=== PATIENT | male | born 1980 | race Caucasian/White ===

== ENCOUNTER 2024-10-05 12:08 | Emergency (ER) | payer OTHER, SELFPAY ==
[2024-10-05 12:53] VITALS: BP 129/80; PULSE 104; RESP 20; TEMP 37.2; O2SAT 96; BMI 34.4
--- NOTE | 2024-10-05 13:18 | ED.GENADULT ---
HPI - General Adult General Chief complaint: Fall/Minor Trauma Stated complaint: Fell, pain in side and abdomen Time Seen by Provider: 10/05/24 13:03 Source: patient Mode of arrival: ambulatory Limitations: no limitations History of Present Illness HPI narrative: 44-year-old male presenting today with left-sided chest wall and abdominal pain after falling on the ice. Patient was walking around his car he, hit a patch of ice. His legs flew out from underneath him and he fell onto his left side. He did not hit his head or lose consciousness. He felt immediate chest wall point well as occurred. He then got up went back to work but noticed that he could not continue because of the amount of pain that was in. He fell approximately 3 hours ago. He complains of pain with deep inspiration. He does not feel dizzy or lightheaded. He denies head or neck pain. Related Data Previous Rx's ?Medication ?Instructions ?Recorded ketorolac 10 mg tablet 10 mg PO TID 5 days #15 tabs 10/05/24 Allergies Allergy/AdvReac Type Severity Reaction Status Date / Time Penicillins Allergy Verified 10/05/24 14:03 Review of Systems Status of ROS: Reports: 10 or more systems reviewed and unremarkable except as noted in History and below Exam Narrative: Exam Narrative: Well-nourished well-developed patient , very uncomfortable, writhing in pain. Alert and oriented. Answers questions appropriately. Mood and affect are appropriate. Thoughts are goal oriented and rational. No tangential or magical thinking noted. Patient speaks in full sentences without needing to catch his breath. GCS is 15. HEENT: Normocephalic atraumatic. No evidence of head trauma noted to the scalp. Pupils are equally round reactive to light. Extraocular muscles are intact. Conjunctivae are moist without any icterus noted. Moist mucous membranes. Posterior pharynx is normal. No trauma noted to the inside of the mouth. Neck is soft without any lymphadenopathy or thyromegaly. No masses are appreciated. Cardiovascular: Heart is regular rate and rhythm S1 and S2 are present without any murmurs. Lungs: Clear to auscultation bilaterally no wheezes rhonchi or rales are appreciated. Patient is a very hard time taking deep breaths secondary to pain of the anterolateral chest wall. He has significant tenderness to palpation of the anterolateral chest wall from about T4 all the way down to the abdomen. Abdomen: Patient has tenderness in the left upper quadrant with some guarding. Normal bowel sounds. Extremities: Bilateral lower extremities are without edema. Skin: Well perfused without any obvious rashes. No obvious bruising is noted anywhere. Back: Normal appearance. Patient has no tenderness to palpation at the cervical, thoracic or lumbar spine. Patient has full range of motion at the neck with flexion, extension, side way bending and rotation without pain. Const: Vital Signs, click to edit/add: Vital Signs - 24 hr 10/05/24 12:53 Temperature 98.9 F Pulse Rate [Pulse Oximeter] 104 H Respiratory Rate 20 Blood Pressure [Ri ght Upper Arm] 129/80 Pulse Oximetry 96 Oxygen Delivery Me thod Room Air Course Course ED Course: Given the amount of discomfort patient is having in the chest wall down into the abdomen there is concern for rib fractures, pneumothorax, hemothorax, splenic laceration. Therefore patient had a chest abdomen pelvis CT done which fortunately was fairly unremarkable. There was no mention of any bony abnormalities so we did call the radiologist double checking and confirmed that there were no evidence of fractures. Offered the patient pain medications, patient refused. Vital Signs Vital signs: Initial Vital Signs Temperature 98.9 F 10/05/24 12:53 Temperature Source Temporal Artery Scan 10/05/24 12:53 Pulse Rate 104 H 10/05/24 12:53 Pulse Rhythm Regular 10/05/24 12:53 Respiratory Rate 10/05/24 12:53 Blood Pressure 129/80 10/05/24 12:53 Blood Pressure Mean 96 10/05/24 12:53 Blood Pressure Position Sitting 10/05/24 12:53 Pulse Oximetry 96 10/05/24 12:53 Oxygen Delivery Method Room Air 10/05/24 12:53 Vital Signs Temperature 98.9 F 10/05/24 12:53 Pulse Rate 104 H 10/05/24 12:53 Respiratory Rate 20 10/05/24 12:53 Blood Pressure 129/80 10/05/24 12:53 Pulse Oximetry 96 10/05/24 12:53 Oxygen Delivery Method Room Air 10/05/24 12:53 Temperature 98.9 F 10/05/24 12:53 Pulse Rate 104 H 10/05/24 12:53 Respiratory Rate 20 10/05/24 12:53 Blood Pressure 129/80 10/05/24 12:53 Pulse Oximetry 96 10/05/24 12:53 Oxygen Delivery Method Room Air 10/05/24 12:53 Medical Decision Making MDM Narrative Medical decision making narrative: 44-year-old male with a contusion to the chest wall after fall. Discussed symptomatic treatment. Imaging Data CT Chest/Ab/Pelvis: Attestation: I have reviewed the pertinent imaging results. Radiologist's impression: CT chest, abdomen, and pelvis acquired with 118 mL Isovue 370 contrast. COMPARISON: None. FINDINGS: CHEST: Lungs and pleura: No evidence of pulmonary contusion, laceration, or pneumothorax. Tree-in-bud nodularity in the anterior left lower lobe, likely sequelae of infectious/inflammatory process. Heart and vessels: No cardiomegaly, no pericardial effusion. Atherosclerotic coronary artery calcifications. Thyroid and lower neck: No suspicious thyroid nodule. Mediastinum/gilmar: No lymphadenopathy. Chest wall: No axillary lymphadenopathy. ABDOMEN/PELVIS: Liver: Diffuse hepatic steatosis. No evidence of hepatic laceration. Gallbladder and bile ducts: Cholelithiasis. No secondary signs of acute cholecystitis. Pancreas: Unremarkable. Spleen: Unremarkable. Adrenal glands: Unremarkable. Kidneys: Kidneys enhance symmetrically, without hydronephrosis. Too small to characterize hypodense right renal lesion noted. Retroperitoneum: No lymphadenopathy. Bowel and mesentery: Bowel is not obstructed. No significant ascites, no pneumoperitoneum. Postsurgical changes at the sigmoid colon. Scattered colonic diverticulosis, without evidence of acute diverticulitis. Normal appendix. No large mesenteric hematoma. Bladder: Unremarkable for degree of distention. Reproductive organs: No prostatomegaly. Pelvic lymph nodes: No lymphadenopathy. Vessels: Unremarkable. Abdominal wall: No acute abdominal wall abnormality. Fat filled ventral abdominal wall hernias noted. Asymmetric atrophy of the inferior right rectus abdominus muscle. Bones: Multilevel degenerative changes of the spine. No suspicious/aggressive focal osseous lesion. IMPRESSION: 1. No evidence of acute solid organ traumatic injury within the chest, abdomen, or pelvis. 2. Tree-in-bud nodularity in the anterior left lower lobe of the lung, likely infectious/inflammatory in etiology. 3. Additional incidental findings as above. Discharge Plan Discharge Clinical Impression: Fall, Contusion of anterior chest wall Patient Disposition: Home, Self-Care Condition: Stable Instructions: Contusion in Adults (ED) Additional Instructions: Your chest CT scan showed some inflammation of the left lung. This is something you should discuss with your primary care provider to see if any follow-up examinations are warranted. There is no evidence of any broken bones. Recommend you take Toradol as prescribed/as needed. Prescription sent to your pharmacy. You can also use a heating pad or ice to the sore areas: Do not apply heat or ice directly to the skin and do not use for more than 20 minutes at a time. Return to the emergency room if you develop fever, vomiting or shortness of breath. Prescriptions: New ketorolac 10 mg tablet 10 mg PO TID 5 Days Qty: 15 0RF Follow Up/Referrals: Provider,Not a Local [Primary Care Provider] - Stand Alone Forms: onkea Info Instructions
--- OUTSIDE RECORDS SUMMARY | 2024-10-05 14:15 | XMS_ITS | Clinical Summary ---
[facility] Address [address] [place] [address] Care Team Providers Care Director Transition Name Role Phone Robb Montiel MD Primary Care Provider [phone] Source Comments You are receiving this document as you are listed as the primary care provider,follow-up provider, or the patient has been referred to you for consultation.This is in compliance with the Medicare and[facility] EHR Incentive Program,which states Providers who transition their patient to another setting of careor provider of care or refers their patient to another provider of care shouldprovide summary care record for each transition of care or referral. [employer] Allergies Active Allergy Reactions Criticality Noted Date Comments Penicillins Rash Medium 08/14/2007 rash, PN: LW Reaction: HIVES Medications Medication Sig Dispensed Refills Start Date End Date Status aspirin, enteric-coated 81 MG enteric coated tablet Take 1 Tablet (81 mg) by mouth. 09/16/2017 Active blood glucose (DIABETES BLOOD GLUCOSE TEST STRIPS)Indications: Diabetes mellitus type II (HRC) Use to test two times a day. 100 Strip 11 03/12/2022 Active Blood Glucose Monitoring Suppl (ACCU-CHEK GUIDE NC) w/Device KITIndications:Type 2 Diabetes Mellitus Use as directed. Indications: Type 2 Diabetes 1 Kit 03/15/2022 Active blood glucose (ACCU-CHEK GUIDE) test stripIndications:Ty pe 2 Diabetes Mellitus Use 1 Each to test two times a day. Use as directed. Indications: Type 2 Diabetes 100 Strip 11 03/15/2022 Active lancets (ACCU-CHEK SOFTCLIX)Indication s:Type 2 Diabetes Mellitus Use 1 Each to test two times a day. Indications: Type 2 Diabetes 100 Each 11 03/15/2022 Active sildenafil (REVATIO) 20 MG tabletIndications:E rectile dysfunction due to diseases classified elsewhere Take 1-5 Tablets (20-100 mg) by mouth daily as needed (erectile dysfunction) for up to 10 doses. 10 Tablet 2 03/23/2023 Active Continuous Blood Gluc Sensor (FREESTYLE JACKIE 2 SENSOR)Indications: Diabetes mellitus type II (HRC) Use as directed for continuous blood glucose monitoring. Replace sensor every 14 days. 6 Each 3 03/23/2023 Active insulin pen needle (B-D ULTRAFINE III SHORT PEN) 31G X 8 MM SHORTIndications:Di abetes mellitus type II (HRC) INJECT 1 EACH UNDER THE SKIN DAILY WITH INSULIN PEN INJECTOR DEVICE. EACH NEEDLE IS FOR ONE TIME USE ONLY. 100 Each 3 10/08/2023 Active glimepiride (AMARYL) 4 MG tabletIndications:T ype 2 diabetes mellitus without complication, with long-term current use of insulin (HRC) Take 2 Tablets (8 mg) by mouth daily before breakfast. 180 Tablet 05/04/2024 Active omeprazole (PRILOSEC) 20 MG capsuleIndications: Gastroesophageal reflux disease, unspecified whether esophagitis present Take 1 Capsule (20 mg) by mouth daily. Take 1 hour before a meal. 90 Capsule 05/04/2024 Active atorvastatin (LIPITOR) 80 MG tabletIndications:H yperlipidemia, unspecified hyperlipidemia type (HRC) TAKE 1 TABLET(80 MG) BY MOUTH DAILY 90 Tablet 3 05/09/2024 Active metFORMIN XR (GLUCOPHAGE XR) 500 MG 24 hour release tabletIndications:D iabetes mellitus, type II (HRC) TAKE 2 TABLETS(1000 MG) BY MOUTH TWICE DAILY WITH MEALS 360 Tablet 2 06/15/2024 Active tirzepatide (MOUNJARO) 2.5 MG/0.5ML injection penIndications:Type 2 diabetes mellitus without complication, with long-term current use of insulin (HRC) Inject 2.5 mg subcutaneously once a week. 2 mL 06/15/2024 Active lisinopril (ZESTRIL) 20 MG tabletIndications:E ssential hypertension (HRC) Take 1 Tablet (20 mg) by mouth daily. 90 Tablet 1 06/15/2024 Active insulin glargine (LANTUS SOLOSTAR) 100 UNIT/ML penIndications:Type 2 diabetes mellitus without complication, with long-term current use of insulin (HRC) Inject 60 Units subcutaneously every evening. 45 mL 06/15/2024 Active B-D UF III MINI PEN NEEDLES 31G X 5 MM needle USE TO INJECT SUBCUTANEOUSLY DAILY WITH INSULIN PEN INJECTOR DEVICE. EACH NEEDLE IS FOR ONE TIME USE ONLY. 100 Each 3 07/31/2024 Active FLUoxetine (PROZAC) 40 MG capsuleIndications: Depression with anxiety (HRC) Take 3 Capsules (120 mg) by mouth daily. 270 Capsule 1 08/10/2024 08/10/20 25 Active Active Problems Problem Noted Date Diagnosed Date [id number] 06/03/2021 Overview (06/03/2021): Added automatically from request for surgery [id number] Miladys-rectal abscess 06/02/2021 Tobacco use disorder 06/02/2021 Type 2 diabetes mellitus wit h hyperglycemia, with long-term current use of insulin 06/02/2021 Fistula, perirectal 06/02/2021 Class 2 severe obesity due t o excess calories with serious comorbidity and body mass index (BMI) of 37.0 to 37.9 in adult 06/02/2021 Fatty liver 06/02/2021 Mixed hyperlipidemia 05/25/2021 Insomnia due to other mental disorder 01/20/2021 Overview (01/20/2021): Medication: zolpidem CR 12.5mg Diagnosis established date: 04/03/2020 When last seen for associated diagnosis: 08/15/2020 Frequency of Visits: annually Last UDS: N/A Meds/treatments tried and failed: immediate release zolpidem, amitriptyline, clonazepam, trazodone Hilda Kennedy PA-C 01/20/2021, 5:01 PM Bilateral ocular hypertension 04/06/2016 Primary hypertension 05/20/2014 Depression with anxiety 09/13/2012 Erectile dysfunction due to diseases classified elsewhere Encounters Date Type Department Care Team Description 08/10/2024 9:25 AM [employer]AME [employer] Telemedicine [address] [address] Robb Montiel MD Type 2 diabetes mellitus with hyperglycemia, with long-term current use of insulin (HRC) (Primary Dx); Depression with anxiety (HRC) 07/29/[address] [address] Cheri Munson, ENTER[employer]ISE APPLICATIONS MANAGER, NEEDLE PROCESS [employer]T GOODS SUPERVISOR Refill (B-D UF III MINI PEN NEEDLES 31G X 5 MM needle [Pharmacy Med Name: B-D PEN NDL MINI [id number](11/18)PRPL]) from Last 3 Months Immunizations Name Administration Dates Next Due Flu Vac (3+ yrs) 06/15/2013,09/12/2012, Flu Vac Preserv Free (3+yrs) 06/15/2013 HepB Adult (Engerix-B, 20+ y rs, 3 dose series) 11/15/2014,09/12/2012 Influenza IIV4 (Quadrivalent) 0.5mL (61342) 01/2014 Td 10/05/2003 Tdap 06/23/2023,12/31/2011 Family History Medical History Relation Name Comments Glaucoma Negative Family History Macular Degeneration Negative Family History Retinal Detachment Negative Family History Relation Name Status Comments Father Alive A&W Mother Alive type II Diabete s Brother 1 Alive Diabetes Brother 2 Alive Social History Tobacco Use Types Packs/Day Years Used Date Smoking Tobacco: Former Cigarettes 0 04/14/2015 - 04/14/2020 Smokeless Tobacco: Former Chew Tobacco Cessation:Counseling Given: Not Answered Comments: Alcohol Use Standard Drinks/Week Comments Yes 0 (1 standard drink = 0.6 oz pur e alcohol) occ. PHQ-2 Answer Date Recorded PHQ-2 Score 0 04/03/2020 Sex and Gender Information Value Date Recorded Sex Assigned at Not on file Gender Identity Not on file Sexual Orientation Not on file Last Filed Vital Signs Vital Sign Reading Time Taken Comments Blood Pressure 110/83 03/23/2023 12:32 PM CDT Pulse 89 03/23/2023 12:32 PM CDT Temperature 36.3 C (97.3 F) 06/16/2021 3:02 PM CDT Respiratory Rate 18 06/16/2021 3:25 PM CDT Oxygen Saturation 95% 06/16/2021 3:25 PM CDT Inhaled Oxygen Concentration - - Weight 112.9 kg (249 lb) 03/23/2023 12:17 PM CDT Height 175.3 cm (5' 9) 03/23/2023 12:17 PM CDT Body Mass Index 36.77 03/23/2023 12:17 PM CDT Plan of Treatment Health Maintenance Due Date Last Done Comments Hep C Screening (Preventive Services) 1982 Pneumococcal (1 - PCV) 01/31/1988 Adult Preventive Visit 08/15/2022 08/15/2020 Diabetes: HGBA1C 09/23/2023 03/23/2023, , 12/26/2022, Additional history exists Diabetes: Eye Exam 03/17/2024 03/17/2023, 0 03/17/2023, 03/17/2023, Additional history exists Diabetes: Creatinine 03/23/2024 03/23/2023, 03/05/2022, 06/08/2021, Additional history exists Diabetes: Foot Exam 03/23/2024 03/23/2023, 08/15/2020, 04/03/2019 Diabetes: Urine Microalbumin 03/23/2024 03/23/2023, 08/15/2020, 04/03/2019 COVID-19 Vaccine ( season) 2024 Influenza (#1) 2024 05/10/2014, 06/05, 06/15/2013, Additional history exists Diabetes: Lipid Panel 03/23/2028 03/23/2023 , 08/15/2020, 06/22/2019, Additional history exists Zoster/Shingles (1 of 2) 01/31/2032 DTaP/Tdap/Td (3 - Tdap) 06/23/2033 06/23/20, 12/31/2011, 10/05/2003 HIV Screening (Preventive Services) Completed 01/03/2015 HPV Vaccine Aged Out No longer eligi ble based on patient's age to complete this topic HepA Aged Out No longer eligi ble based on patient's age to complete this topic Hib Aged Out No longer eligi ble based on patient's age to complete this topic IPV (Polio) Aged Out No longer eligi ble based on patient's age to complete this topic MCV4 Aged Out No longer eligi ble based on patient's age to complete this topic Procedures Procedure Name Priority Date/Time Associated Diagnosis Comments CREATININE / GFR Routine 03/23/2023 1:20 PM CDT Diabetes mellitus type II (HRC) Essential hypertension ALBUMIN/CREAT RATIO Routine 03/23/2023 1 :20 PM CDT Diabetes mellitus type II (HRC) LIPID PANEL & DIRECT LDL (IF NEEDED) Routine 03/23/2023 1:20 PM CDT Hyperlipidemia, unspecified hyperlipidemia type HGB A1C Routine 03/23/2023 1:20 PM CDT Diabetes mellitus type II (HRC) from Last 3 Months or Most Recently Relevant to Health Maintenance Results * (ABNORMAL) Lipid Panel and Direct LDL(If Needed) (03/23/2023 1:20 PM CDT) Cholesterol 55 0 - 199 mg/dL 03/23/2023 7:22 PM CDT [facility] Triglyceride 156(H) <=149 mg/dL 03/23/2023 7:22 PM CDT [facility] HDL Cholesterol 12(L) >=40 mg/dL 03/23/2023 7:22 PM CDT [facility] LDL, Calculated 12 <130 mg/dL 03/23/2023 7:22 PM CDT [facility] Non HDL Chol, Calculated 43 <=159 mg/dL 03/23/2023 7:22 PM CDT [facility] Cholesterol/HDL Ratio 4.6 03/23/2023 7:22 PM CDT [facility] Hours Fasting 12 03/23/2023 7:22 PM CDT [facility] Blood Venipuncture / Unknown 03/23/2023 1:20 PM CDT 03/23/2023 1:21 PM CDT Cheri Munson APRN, NEEDLE PROCESS F[employer]T GOODS SUPERVISOR LAB_1 Performing Organization Address [facility]/ZIP Co de Phone Number [facility] [address] [address], [facility] [phone] [facility] [address] [place] [address] * (ABNORMAL) Creatinine / GFR (03/23/2023 1:20 PM CDT) Creatinine 0.61(L) 0.73 - 1.18 mg/dL 03/23/2023 7:22 PM CDT [facility] GFR, Estimated >60 >60 mL/min/1. 73m2 03/23/2023 7:22 PM CDT [facility] Blood Venipuncture / Unknown 03/23/2023 1:20 PM CDT 03/23/2023 1:21 PM CDT Cheri Munson APRN, CNP LAB_1 Performing Organization Address [facility] Co de Phone Number [facility] [address] [address], [facility] [phone] * Albumin/Creatinine Ratio,Random Urine (03/23/2023 1:20 PM CDT) Albumin/Creati nine Ratio, Urine, Random 12 <30 mg/g 03/23/2023 7:38 PM CDT [facility] Albumin, Urine, Random 39.4 mg/L 03/23/2023 7:38 PM CDT [facility] Creatinine, Urine, Random 318 >20 mg/dL mg/dL 03/23/2023 7:38 PM CDT [facility] Urine Non-blood Collection / Unknown 03/23/2023 1:20 PM CDT 03/23/2023 1:21 PM CDT Cheri Munson APRN, CNP LAB_1 Performing Organization Address [facility]/ZIP Co de Phone Number [facility] [address] [address] [phone] * (ABNORMAL) Hgb A1C (03/23/2023 1:20 PM CDT) Hemoglobin A1C 11.6(H) <=5.6 % 03/23/2023 7:51 PM CDT [facility] Estimated Average Glucose (Calc) 286 < 117 mg/dL 03/23/2023 7:51 PM CDT [facility] Comment:Estimated average gl ucose (eAG) converts A1c into glucose units (mg/dL) and estimates average glucose over the past approximately 3 months. The eAG reference interval (<117 mg/dL) corresponds to an A1c of <5.7%. Blood Venipuncture / Unknown 03/23/2023 1:20 PM CDT 03/23/2023 1:21 PM CDT Narrative [facility] - 03/23/2023 7:51 PM CDT For patients not previously diagnosed with diabetes: 5.7-6.4%: Increased risk for diabetes 6.5% and greater: Diagnostic for diabetes For patients diagnosed with diabetes: <8.0%: Goal of therapy for ages 18-75 Clinicians may recommend a higher or lower goal for specific individuals. Cheri Munson APRN, CNP LAB_1 Performing Organization Address City/State/[facility] Co de Phone Number [facility] [address] [address], [facility] [phone] from Last 3 Months or Most Recently Relevant to Health Maintenance Care Teams Director Transition Relationship Specialty Start Date End Date Robb Montiel MD [address] [place] [address] PCP - General Family Practice 05/25/21
--- OUTSIDE RECORDS SUMMARY | 2024-10-05 14:15 | XMS_ITS | Clinical Summary ---
Author Organization [employer] [facility] Address [place], [place] [address] Care Team Providers Care Store Product Demonstrator Name Role Phone Clinic, No Pcp Or Primary Care Provider Unavaila ble Allergies Active Allergy Reactions Criticality Noted Date Comments Penicillins Rash Medium 08/14/2007 rash, PN: LW Reaction: HIVES Medications lancets (ONE TOUCH DELICA) Test 3 times a day 100 Each 3 2 Active blood sugar diagnostic (ONE TOUCH ULTRA TEST) stripIndications :Diabetes mellitus type II Test 3 times a day 100 Each 0 3 Active blood-glucose meterIndications :Type 2 diabetes mellitus without complication, without long-term current use of insulin (HC) Dispense meter, test strips, lancets covered by pt ins. E11.65 NIDDM type II, uncontrolled - Test 1 time/day 1 Device 7 Active aspirin (ECOTRIN) 81 mg enteric coated tabletIndication s:Type 2 diabetes mellitus without complication (HC) TAKE 1 TABLET BY MOUTH EVERY DAY WITH A MEAL 90 tablet 2 8 Active atorvastatin (LIPITOR) 80 mg tablet Take 80 mg by mouth once daily. 9 Active lisinopriL (PRINIVIL; ZESTRIL) 20 mg tablet Take 20 mg by mouth once daily. 9 Active sennosides (SENNA) 8.6 mg tabletIndication s:Perianal abscess Take 2 Tablets (17.2 mg) by mouth 2 times daily if needed for Constipation. 20 Tablet 3 Active insulin glargine-yfgn, U-100, (SEMGLEE) 100 unit/mL (3 mL) pen Inject 60 units subcutaneous every 24 hours. 3 Active omeprazole (PRILOSEC) 20 mg Delayed-Release capsule Take 1 Capsule by mouth once daily before a meal. 3 Active metFORMIN (GLUCOPHAGE XR) 500 mg Extended-Release tablet Take 2 Tablets by mouth two times daily with meals. 3 Active glimepiride (AMARYL) 4 mg tablet Take 8 mg by mouth once daily. Active ascorbic acid chewable (Vitamin C) 250 mg chew Chew 750 mg by mouth once daily. Active cholecalciferol (Vitamin D) 1,000 unit capsule Take 1,000 units by mouth once daily. 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 Type II diabetes mellitus, well controlled 12/24 Right nasal mass 05/24/2014 HTN (hypertension) 05/20/2014 Depression with anxiety 09/13/2012 Resolved Problems Problem Noted Date Diagnosed Date Resolved Date Right nasal polyps 05/13/2014 4 Immunizations Name Administration Dates Next Due Hepatitis B (Adult) 01/08/2015(Deferred: Patient Refused - patient went to lab first),11/15/2014,09/12/2012 Influenza, IIV3 (Age 6-35 mos) 06/15/2013 Influenza, IIV3 (Age >=3 years) 09/12/2012 Influenza, IIV4 05/10/2014 Tdap 06/23/2023,12/31/2011 Social History Tobacco Use Types Packs/Day Years Used Date Smoking Tobacco: Every Day Cigarettes Last attempted to quit: 04/22/2016 Smokeless Tobacco: Former Tobacco Cessation:Ready to Q uit: Yes; Counseling Given: Yes Comments:As of 03/17/16 smoking half pack/day Alcohol Use Standard Drinks/Week Comments No 0 (1 standard drink = 0.6 oz pur e alcohol) done drinking 05/25/2017 PHQ-2 Answer Date Recorded PHQ-2 Score 0 11/06/2018 Social Connections Answer Date Recorded Frequency of Communication with Friends and Fami ly 0 12/27/2022 Financial Resource Strain Answer Date R ecorded Difficulty of Paying Living Expenses 3 12/27/2022 Difficulty of Paying Living Expenses Not on file 12/27/2022 Food Insecurity Answer Date Recorded Worried About Running Out of Food in the Last Ye ar 1 12/27/2022 Transportation Needs Answer Date Record ed Lack of Transportation (Medical) 1 12/27/2022 Housing Stability Answer Date Recorded Unable to Pay for Housing in the Last Year 1 12/27/2022 Sex and Gender Information Value Date Recorded Sex Assigned at Not on file Legal Sex Male 6:06 AM [employer]AND DEPARTMENT [employer] Gender Identity Male 12/26/2022 8:48 AM CDT Sexual Orientation Not on file Obstetrics History Last Filed Vital Signs Vital Sign Reading Time Taken Comments Blood Pressure 129/80 07/21/2023 12:06 PM [employer] Pulse 100 07/21/2023 12:06 PM [employer] Temperature 36.3 C (97.4 F) 07/21/2023 12:06 PM [employer] Respiratory Rate 16 07/21/2023 12:06 PM [employer] Oxygen Saturation 98% 07/21/2023 12:06 PM [employer] Inhaled Oxygen Concentration - - Weight 110.2 kg (243 lb) 07/21/2023 12:06 PM [employer] Height 177.8 cm (5' 10) 12/26/2022 3:46 PM CDT Body Mass Index 34.87 12/26/2022 3:46 PM CDT Plan of Treatment Health Maintenance Due Date Last Done Comments Pneumococcal series for age 6-49 (1 of 2 - PCV) 2001 BMI (ht and wt on same day) for age 18+ 03/07/2019 03/07/2018, 07/26/2017, 09/22/2016, Additional history exists Depression screening for age 12+ 03/07/2019 03/07/20 18, 09/22/2016 Lipids for age 35-44 03/17/2021 03/17/2016, 03/17/2016, 07/25/2015, Additional history exists COVID-19 vaccine series ( season) 2024 Influenza for age 9-49 05/06/2024 05/10/2014, 2012 Tetanus booster 06/23/2033 06/23/2023, 12/31/2011 HIV for age 15-65 Completed 01/03/2015 Hepatitis C screening for ag e 18-79 Completed 01/03/2015 Tdap Completed 06/23/2023, 12/31/2011 Procedures Procedure Name Priority Date/Time Associated Diagnosis Comments LIPID PANEL W REFLEX MEASURED LDL Routine 03/17/2016 4:55 PM CDT Type II diabetes mellitus, well controlled (HC) ANTI HIV 1/2 Routine 01/03/2015 4:28 PM CDT Screen for STD (sexually transmitted disease) ANTI HCV Routine 01/03/2015 4:28 PM CDT Screen for STD (sexually transmitted disease) from Last 3 Months or Most Recently Relevant to Health Maintenance Results * (ABNORMAL) LIPID PANEL W REFLEX MEASURED LDL (03/17/2016 4:55 PM CDT) CHOLESTEROL,TOTAL 198 100 - 199 mg/dL 03/17/2016 11:25 PM CDT [facility] TRIGLYCERIDES 639(H) <150 mg/dL 03/17/2016 11:25 PM CDT [facility] HDL CHOLESTEROL 24(L) >40 mg/dL 03/17/2016 11:25 PM CDT [facility] NON-HDL CHOLESTEROL 174(H) <145 mg/dl 03/17/2016 11:25 PM CDT [facility] CHOL/HDL RATIO 8.25(H) <4.50 03/17/2016 11:25 PM CDT [facility] LDL CHOLESTEROL 03/17/2016 11:25 PM CDT [facility] Comment:Invalid LDL when Tri g >400, reflexed to measured LDL PATIENT STATUS FASTING 03/17/2016 11:25 PM CDT [facility] Blood BLOOD SPECIMEN / Unknown Venipuncture / Unknown 03/17/2016 4:55 PM CDT 03/17/2016 4:55 PM CDT us Veronica ROBERTS CHEMISTRY Final R esult [facility] [address] [place] [address], * ANTI HCV (01/03/2015 4:28 PM CDT) HEPATITIS C ANTIBODY Non-Reacti ve Non-Reacti ve 01/03/2015 9:09 PM CDT [facility] Blood specimen (specimen) BLOOD SPECIMEN / Unknown Venipuncture / Unknown 01/03/2015 4:28 PM CDT 01/03/2015 4:28 PM CDT Narrative [facility] - 01/03/2015 9:09 PM CDT Antibodies to HCV not detected; does not exclude the possibility of exposure to HCV. Hui Colon MD SEND OUTS Final Result [facility] [address] [place] [address], * ANTI HIV 1/2 (01/03/2015 4:28 PM CDT) HIV-1/HIV-2 ANTIBODY Non-Reacti ve Non-Reacti ve 01/03/2015 9:10 PM CDT [facility] Blood specimen (specimen) BLOOD SPECIMEN / Unknown Venipuncture / Unknown 01/03/2015 4:28 PM CDT 01/03/2015 4:28 PM CDT Narrative [facility] - 01/03/2015 9:10 PM CDT HIV-1 p24 and HIV-1/HIV-2 Ab not detected us Hui Colon MD SEND OUTS Final Result [facility] [address] [place] [address], from Last 3 Months or Most Recently Relevant to Health Maintenance Insurance [address] [place] [address] U[employer] UMR UMR * Guarantor: BENJAMIN LUCAS ESCREEN) Account Type Relation to Patient Date of Phone Billing Address [facility] ATTN KARIME [facility] [address] [place] [address] Advance Directives * Full Code (Latest Code Status on File) Date Activated Date Inactivated Comments 12/27/2022 8:24 AM 12/27/2022 9:00 PM Question Answer Comments Code Status Discussion: Reviewed Preferences * Full Code Date Activated Date Inactivated Comments 07/27/2013 4:38 PM 07/30/2013 7:17 PM * Full Code Date Activated Date Inactivated Comments 07/27/2013 3:41 AM 07/27/2013 4:38 PM Care Teams Store Product Demonstrator Relationship Specialty Start Date End Date Clinic, No Pcp Or . PCP - General 06/23/23
--- OUTSIDE RECORDS SUMMARY | 2024-10-05 14:15 | XMS_ITS | Encounter Summary ---
Author Organization [employer] Address [address] [place] [address] Care Team Providers Care Painter Tumbling Barrel Name Role Phone Robb Montiel MD Primary Care Provider [phone] Encounter Details Date Type Department Care Team (Late st Contact Info) Description 09/23/2019 Emergency Room External to [facility] RE[facility]AL [facility] Social History Tobacco Use Types Packs/Day Years Used Date Smoking Tobacco: Every Day Cigarettes Smokeless Tobacco: Former Chew Comments:chews tobacco occ. 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
--- OUTSIDE RECORDS SUMMARY | 2024-10-05 14:15 | XMS_ITS | Encounter Summary ---
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
[2024-10-05 15:39] VITALS: BP 124/76; PULSE 98; RESP 20; TEMP 37.2
== END 2024-10-05 15:41 | disposition home or self-care (01) ==
PROVIDERS: Emergency Provider Family Medicine
DX: S20.212A Contusion of left front wall of thorax, initial encounter (principal); W00.9XXA Unspecified fall due to ice and snow, initial encounter
CPT/HCPCS: 71260; 74177; 99283; 99284; Q9967